=== PATIENT | female | born 1975 | race Hispanic/Latino ===

== ENCOUNTER 2022-01-07 10:31 | Outpatient (CLI) | payer OTHER | END 2022-01-07 10:32 | disposition home or self-care (01) | LOC: CSHLAB 10:31 | PROVIDERS: ATTEND Obstetrics & Gynecology | DX: Z01.812 Encounter for preprocedural laboratory examination (principal); Z20.822 Contact with and (suspected) exposure to COVID-19 | CPT/HCPCS: 84703; 85025; 86850; 86900; 86901; 87811 ==

== ENCOUNTER 2022-01-12 05:47 | Day surgery (SDC) | payer OTHER ==
[2022-01-07 11:50] LABS: #Eosinphils 0.1 10x3/uL (0.0-0.5); #Monocytes 0.6 10x3/uL (0.0-1.1); #Neutrophils 3.4 10x3/uL (1.5-8.4); %Basophils 0.3 % (0.0-2.0); %Eosinophils 1.3 % (0.0-6.0); %Lymphocytes 32.9 % (18.0-47.0); %Neutrophils 55.2 % (40.0-75.0); Hemoglobin 12.8 g/dL (12.0-15.5); Mean Corpuscular HGB CONC 33.5 g/dL (32.0-36.0); Mean Corpuscular Hemoglobin 29.8 pg (27.0-33.0); Mean Corpuscular Volume 88.8 fl (81.6-98.3); Mean Platelet Volume 11.2 fl (7.4-10.4); Platelet Count 291 10x3/uL (150-450); RBC Distribution Width 13.2 % (11.5-14.5); White Blood Cell (WBC) Count 6.2 10x3/uL (3.5-10.5)
[2022-01-07 12:42] LABS: Pregs Control Background? CLEAR/WHITE (CLR/WHITE); Pregs Control Bar Appear? YES (CONTROL BAR)
[2022-01-07 12:43] LABS: BHCG - Serum Negative (NEGATIVE)
[2022-01-10 12:16] VITALS: BMI 25.7
[2022-01-12] MEDS ORDERED: Gabapentin 300 MG CAP ONE (06:23)
[2022-01-12] MEDS ORDERED: Famotidine/PF 20 mg/2ml Vial ONE (06:24)
[2022-01-12] MEDS ORDERED: CeleCOXIB 100 MG CAP ONE (06:24)
[2022-01-12] MEDS ORDERED: EPINEPHrine 1 MG/ML AMP ONE (06:49)
[2022-01-12] MEDS ORDERED: Bupivacaine PF 0.5% 30 ML VIAL ONE (06:50)
[2022-01-12] MEDS ORDERED: Dexamethasone 4 mg/ml Vial ONE (07:01)
[2022-01-12] MEDS ORDERED: Lidocaine 4% Topical Sol 50 ML BOT ONE (07:01)
[2022-01-12] MEDS ORDERED: Ondansetron PF 4 MG/2 ML Vial ONE (07:01)
[2022-01-12] MEDS ORDERED: Lidocaine 1% PF 5 ML VIAL ONE (07:01)
[2022-01-12] MEDS ORDERED: Ketorolac Tromethamine 30 MG/ML VIAL ONE (07:01)
[2022-01-12] MEDS ORDERED: Glycopyrrolate 0.2 MG/ML 5 ML SYRINGE ONE (07:01)
[2022-01-12] MEDS ORDERED: Fentanyl 250 MCG/5 ML VIAL ONE (07:01)
[2022-01-12] MEDS ORDERED: PROPOFOL 20 ML ONE (07:01)
[2022-01-12] MEDS ORDERED: CEFAZOLIN 2 GM VIAL ONE (07:18)
[2022-01-12] MEDS ORDERED: Midazolam HCl 2 mg/2 ml Vial ONE (07:22)
[2022-01-12] MEDS ORDERED: Ropivacaine 0.2% 550 ML 750 ML NERVE BLCK SCH (09:45)
[2022-01-12] MEDS ORDERED: Ropivacaine HCl/PF 750 ML in Premix Bag 1 BAG NERVE BLCK SCH (09:45)
== END 2022-01-12 11:55 | disposition home or self-care (01) ==
LOC: CSHSDC 05:47
PROVIDERS: ATTEND Obstetrics & Gynecology
PROC: 0UT74ZZ Resection of Bilateral Fallopian Tubes, Percutaneous Endoscopic Approach (ICD-10-PCS; principal; 2022-01-12)
PROC: 0UB14ZZ Excision of Left Ovary, Percutaneous Endoscopic Approach (ICD-10-PCS; principal; 2022-01-12)
PROC: 0UT94ZZ Resection of Uterus, Percutaneous Endoscopic Approach (ICD-10-PCS; principal; 2022-01-12)
DX: D25.9 Leiomyoma of uterus, unspecified (principal); N80.0 Endometriosis of uterus; N83.12 Corpus luteum cyst of left ovary; N83.8 Other noninflammatory disorders of ovary, fallopian tube and broad ligament; K66.0 Peritoneal adhesions (postprocedural) (postinfection); N94.6 Dysmenorrhea, unspecified; Z79.899 Other long term (current) drug therapy; Z98.51 Tubal ligation status; Z98.890 Other specified postprocedural states
CPT/HCPCS: 84703; 85025; 86850; 86900; 86901; 87811; 88307; A4306; J0171; J0690; J1100; J1885; J2250; J2405; J2704; J2795; J3010; S0020; S0028